=== PATIENT | male | born 1980 | race Caucasian/White ===

== ENCOUNTER → 2016-11-22 | Outpatient (CLI) | payer BC ==
[~2016-11-22] MED LIST: AUGMENTIN 75 ML75 ML PO; CELEXA40 MG PO; CLARITIN-D 12 H1 TAB PO; LOMOTIL 0.025 M1 TA1 PO; PREDNICOT10 MG PO; ZITHROMAX Z PA250 MG PO; ZOFRAN ODT4 MG SL; ZYRTEC10 M1 PO
[2016-11-22 12:01] LABS: BASO % 0.6 % (0.0-1.0); EOS # 0.2 10*3/uL (0.0-0.4); HEMATOCRIT 47.2 % (42.0-52.0); HEMOGLOBIN 15.4 g/dl (14.0-18.0); LYMPH # 1.7 10*3/uL (1.3-4.4); LYMPH % 30.9 % (27.0-41.0); MEAN CELL VOLUME 92.4 fl (80.0-94.0); MEAN CORPUSCULAR HGB 30.1 pg (27.0-31.0); MEAN CORPUSCULAR HGB CONC 32.6 g/dl (33.0-37.0); MEAN PLATELET VOLUME 11.3 fl (9.6-12.3); MONO # 0.4 10*3/uL (0.1-1.0); MONO % 6.7 % (3.0-9.0); NEUT # 3.2 10*3/uL (2.3-7.9); NEUT % 58.6 % (47.0-73.0); PLATELET COUNT AUTOMATED 262 10*3/uL (130-400); RED BLOOD COUNT 5.11 10*6/uL (4.50-5.90); RED CELL DISTRI WIDTH 12.6 % (0-14.5); WHITE BLOOD COUNT 5.4 10*3/uL (4.8-10.8)
[2016-11-22 12:29] LABS: ALKALINE PHOSPHATASE 73 U/L (45-117); BILIRUBIN, DIRECT < 0.1 mg/dL (0.0-0.2); CHOLESTEROL 180 mg/dL (<200); HDL CHOLESTEROL 37 mg/dl (40-60); IRON 86 ug/dL (65-175); LDL CHOLESTEROL 126 mg/dL (9-159); SGOT/AST 10 IU/L (3-35); SGPT/ALT 17 U/L (12-78); TOTAL IRON BINDING CAPACITY 311 ug/dl (250-450); TOTAL PROTEIN 7.5 gm/dL (6.4-8.2); TRIGLYCERIDES 87 mg/dl (<150); VLDL CHOLESTEROL 17 mg/dL (6-40)
== END | disposition home or self-care (01) ==
LOC: LAB 11:46
PROVIDERS: Internal Medicine
DX: D50.8 Other iron deficiency anemias (principal); R73.02 Impaired glucose tolerance (oral); E55.9 Vitamin D deficiency, unspecified; E78.4 Other hyperlipidemia

== ENCOUNTER → 2017-06-12 | Outpatient (CLI) | payer BC ==
[2017-06-12 15:02] LABS: ALKALINE PHOSPHATASE 79 U/L (45-117); BILIRUBIN, DIRECT < 0.1 mg/dL (0.0-0.2); CHOLESTEROL 186 mg/dL (<200); SGOT/AST 8 IU/L (3-35); SGPT/ALT 19 U/L (12-78); TOTAL PROTEIN 7.2 gm/dL (6.4-8.2); TRIGLYCERIDES 137 mg/dl (<150); VLDL CHOLESTEROL 27 mg/dL (6-40)
[2017-06-12 15:04] LABS: HDL CHOLESTEROL 36 mg/dl (40-60); LDL CHOLESTEROL 123 mg/dL (9-159)
[2017-06-12 15:47] LABS: VITAMIN D, 25-HYDROXY 16.1 ng/mL (30-100)
== END | disposition home or self-care (01) ==
LOC: LAB 14:13
PROVIDERS: Internal Medicine
DX: E78.4 Other hyperlipidemia (principal); E55.9 Vitamin D deficiency, unspecified; D51.0 Vitamin B12 deficiency anemia due to intrinsic factor deficiency; R73.02 Impaired glucose tolerance (oral)

== ENCOUNTER 2019-03-21 20:18 | Emergency (ER) | payer BC ==
[~2019-03-21] VITALS: Ht 180.3 cm; Wt 97.5 kg
[2019-03-21] MEDS ORDERED: Motrin,Rufen800 MG PO (21:44)
[2019-03-21] MEDS ORDERED: KEFLEX500 M1 PO (21:44)
== END 2019-03-21 21:50 | disposition home or self-care (01) ==
LOC: ED 20:18
DX: S61.432A Puncture wound without foreign body of left hand, initial encounter (principal); Z79.2 Long term (current) use of antibiotics; Z79.899 Other long term (current) drug therapy; W22.8XXA Striking against or struck by other objects, initial encounter; Y93.89 Activity, other specified; Y92.89 Other specified places as the place of occurrence of the external cause; Y99.8 Other external cause status

== ENCOUNTER 2022-08-10 14:09 | Emergency (ER) | payer OTHER ==
[~2022-08-10] VITALS: Ht 180.3 cm; Wt 97.5 kg
[~2022-08-10 14:09] MED LIST changes: +KEFLEX500 M1 PO; +Motrin,Rufen800 MG PO
[2022-08-10] MEDS ORDERED: CEPHALEXIN500 M1 PO (16:23)
== END 2022-08-10 16:26 | disposition home or self-care (01) ==
LOC: ED 14:09
DX: S61.214A Laceration without foreign body of right ring finger without damage to nail, initial encounter (principal); F32.A Depression, unspecified; F41.9 Anxiety disorder, unspecified; W26.9XXA Contact with unspecified sharp object(s), initial encounter; Y93.89 Activity, other specified; Y92.89 Other specified places as the place of occurrence of the external cause; Y99.0 Civilian activity done for income or pay

== ENCOUNTER → 2022-11-28 | Outpatient (CLI) | payer OTHER ==
[~2022-11-28] MED LIST changes: +CEPHALEXIN500 M1 PO
== END | disposition home or self-care (01) ==
LOC: RAD 01:23
PROVIDERS: ATTEND Specialist
DX: K21.9 Gastro-esophageal reflux disease without esophagitis (principal)